=== PATIENT | female | born 1940 | race Caucasian/White ===

== ENCOUNTER 2018-10-03 12:42 | Emergency (ER) | payer MEDICARE ==
[2018-10-03 12:56] LABS: ABSOLUTE LYMPHOCYTES (AUTO) 2.1 10^3/uL (0.5-4.7); ABSOLUTE MONOCYTES (AUTO) 0.5 10^3/uL (0.1-1.4); ABSOLUTE NEUT (AUTO) 6.1 10^3/uL (1.7-8.2); BASOPHILS % (AUTO) 0.3 % (0-2); EOSINOPHILS % (AUTO) 0.4 % (0-6); HEMATOCRIT 35.5 % (36.0-47.0); HEMOGLOBIN 12.2 g/dL (12.0-15.5); LYMPHOCYTES % (AUTO) 23.9 % (13-45); MEAN CORPUSCULAR HGB CONC 34.3 g/dL (32.0-36.0); MEAN CORPUSCULAR VOLUME 91 fl (80-97); MONOCYTES % (AUTO) 5.8 % (3-13); PLATELET COUNT 269 10^3/uL (150-450); RED BLOOD COUNT 3.92 10^6/uL (3.72-5.28); RED CELL DISTRIBUTION WIDTH 14.7 % (11.5-14.0); SEGMENTED NEUTROPHILS % (AUTO) 69.6 % (42-78); TOTAL CELLS COUNTED % (AUTO) 100 %; WHITE BLOOD COUNT 8.8 10^3/uL (4.0-10.5)
[2018-10-03 13:01] LABS: PROTHROMBIN TIME 14.8 SEC (11.4-15.4)
[2018-10-03 13:02] LABS: PARTIAL THROMBOPLASTIN TIME 34.2 SEC (23.5-35.8)
--- NOTE | 2018-10-03 13:07 | RADIOLOGY REPORT (SQ) ---
EXAM DESCRIPTION: CT HEAD WITHOUT COMPLETED DATE/TIME: 10/03/2018 12:53 pm REASON FOR STUDY: stroke s/s COMPARISON: None. TECHNIQUE: Axial images acquired through the brain without intravenous contrast. Images reviewed wi th bone, brain and subdural windows. Additional sagittal and coronal reconstructions were generated. Images stored on PACS. All CT scanners at this facility use dose modulation, iterative reconstruction, and/or weight based d osing when appropriate to reduce radiation dose to as low as reasonably achievable (ALARA). [facility]: Dose Right [facility]: CareDose [facility]: Dose Right [facility]: Teradose 4D [facility]: [place] RADIATION DOSE: 1070 mgy cm LIMITATIONS: None. FINDINGS: VENTRICLES: Normal size and contour. CEREBRUM: There is a very large, heterogeneous intraparenchymal hemorrhage centered in the left coron a radiata measuring at least 7.6 x 5.6 cm in axial dimension, with extension to the lateral ventricle s and subarachnoid spaces. There is approximately 7 mm eoot-rs-kammf midline shift and evidence of e vasu uncal herniation (series 401, image 33). CEREBELLUM: No masses. No hemorrhage. No alteration of density. No evidence for acute infarction. EXTRAAXIAL SPACES: No fluid collections. No masses. ORBITS AND GLOBE: No intra- or extraconal masses. Normal contour of globe without masses. CALVARIUM: No fracture. PARANASAL SINUSES: No fluid or mucosal thickening. SOFT TISSUES: No mass or hematoma. OTHER: No other significant finding. IMPRESSION: There is a very large, heterogeneous intraparenchymal hemorrhage centered in the left co fausto radiata measuring at least 7.6 x 5.6 cm in axial dimension, with extension to the lateral ventri cles and subarachnoid spaces. There is approximately 7 mm sjwu-dd-dctmc midline shift and evidence o f early uncal herniation. EVIDENCE OF ACUTE STROKE: NO. Findings reported to Dr. Cabrera by telephone, 1300 hours, 10/03/2018. COMMENT: Quality ID # [id number]: Final reports with documentation of one or more dose reduction techniques (e.g., Automated exposure control, adjustment of the mA and/or kV according to patient size, use of iterative reconstruction technique) TECHNICAL DOCUMENTATION: JOB ID: [id number] [employer]- All Rights Reserved Reading location - IP/workstation name: [email or web address]
[2018-10-03 13:15] LABS: ALANINE AMINOTRANSFERASE 33 U/L (9-52); ALBUMIN 4.8 g/dL (3.5-5.0); ALKALINE PHOSPHATASE 73 U/L (38-126); ANION GAP 12 (5-19); ASPARTATE AMINO TRANSFERASE 37 U/L (14-36); BILIRUBIN,DIRECT 0.2 mg/dL (0.0-0.4); BILIRUBIN,TOTAL 0.7 mg/dL (0.2-1.3); BLOOD UREA NITROGEN 13 mg/dL (7-20); CALCIUM 9.2 mg/dL (8.4-10.2); CARBON DIOXIDE 26 mmol/L (22-30); CHLORIDE 102 mmol/L (98-107); CREATINE KINASE 114 U/L (30-135); GLUCOSE 100 mg/dL (75-110); POTASSIUM 4.1 mmol/L (3.6-5.0); SODIUM 139.6 mmol/L (137-145); TOTAL PROTEIN 7.7 g/dL (6.3-8.2)
--- NOTE | 2018-10-03 13:16 | RADIOLOGY REPORT (SQ) ---
EXAM DESCRIPTION: CHEST SINGLE VIEW COMPLETED DATE/TIME: 10/03/2018 12:56 pm REASON FOR STUDY: stroke s/s COMPARISON: 07/12/2015 EXAM PARAMETERS: NUMBER OF VIEWS: One view. TECHNIQUE: Single frontal radiographic view of the chest acquired. RADIATION DOSE: NA LIMITATIONS: None. FINDINGS: LUNGS AND PLEURA: No opacities, masses or pneumothorax. No pleural effusion. MEDIASTINUM AND HILAR STRUCTURES: No masses. Contour normal. HEART AND VASCULAR STRUCTURES: Heart normal in size. Normal vasculature. BONES: No acute findings. HARDWARE: Extensive spine hardware. OTHER: No other significant finding. IMPRESSION: NO ACUTE RADIOGRAPHIC FINDING IN THE CHEST. TECHNICAL DOCUMENTATION: JOB ID: [id number] [employer]- All Rights Reserved Reading location - IP/workstation name: [email or web address]
[2018-10-03 13:26] LABS: CREATINE KINASE MB 2.57 ng/mL (<4.55)
[2018-10-03 13:28] LABS: TROPONIN I < 0.012 ng/mL
[2018-10-03] MEDS ORDERED: PROPOFOL 1,000 MG/100 ML INFUS..BTL IV ONE (13:31)
[2018-10-03] MEDS ORDERED: ETOMIDATE INJ/PF 20 MG/10 ML SDV IV ONE (13:33)
[2018-10-03] MEDS ORDERED: NICARDIPINE HCL RTU, ISO-OS 20 MG/200 ML RTUINJ IV ONE (13:36)
[2018-10-03] MEDS ORDERED: MANNITOL 25% INJ 12.5 GM/50 ML VIAL IV ONE (14:06)
[2018-10-03] MEDS ORDERED: MANNITOL 500 ML IV ONE (14:10)
--- NOTE | 2018-10-03 14:26 | ER Document Report ---
ED Neuro Symptoms/Deficit - General Chief Complaint: S/S of Possible Stroke Stated Complaint: POSSIBLE STROKE Time Seen by Provider: 10/03/18 12:48 Primary Care Provider: PATRIC AGUERO MD [Primary Care Provider] - Follow up as needed Notes: Patient brought in by EMS for possible stroke. Patient had conversations with her who was at work up until about just before noon today. When he went home shortly after that, he found the patient on the floor having fallen into a sliding glass door and breaking the door. She was poorly responsive at that time and EMS was called. EMS found the patient to be poorly responsive as well. They noted that she had a left lateral gaze and apparent right-sided weakness. No other history is available at this time. TRAVEL OUTSIDE OF THE [place] IN LAST 30 DAYS: No - Related Data Allergies/Adverse Reactions: nalidixic acid [Nalidixic Acid] Allergy (Unknown, Verified 07/13/15 02:14) doxycycline [Doxycycline] Allergy (Verified 07/13/15 02:14) Past Medical History - Social History Smoking Status: Unknown if Ever Smoked Family History: Reviewed & Not Pertinent Patient has suicidal ideation: No Patient has homicidal ideation: No - Past Medical History Cardiac Medical History: Reports: Hx Atrial Fibrillation - On Eliquis., Hx Hypertension Pulmonary Medical History: Neurological Medical History: Reports: Hx Cerebrovascular Accident - NO RESIDUAL EFFECTS GI Medical History: Reports: Hx Ulcer - 10 YEARS AGO FROM TAKING LODINE Infectious Medical History: Past Surgical History: Reports: Hx Hysterectomy, Hx Orthopedic Surgery - 3 spinal surgeries - Immunizations Hx Diphtheria, Pertussis, Tetanus Vaccination: Yes Hx Pneumococcal Vaccination: 09/01/14 Review of Systems - Review of Systems -: Yes ROS unobtainable due to patient's medical condition - Patient is unable to speak. Per , no recent illness. Physical Exam - Vital signs Vitals: Pulse Resp BP Pulse Ox 68 13 155/107 H 96 10/03/18 12:45 10/03/18 12:45 10/03/18 12:45 10/03/18 12:45 Interpretation: Hypertensive Notes: PHYSICAL EXAMINATION: GENERAL: Unresponsive and is not speaking. HEAD: Atraumatic, normocephalic. EYES: Pupils equal round and reactive to light NECK: Stiff and immobile, most likely related to previous surgeries and hardware. LUNGS: Breath sounds clear and equal bilaterally. HEART: Irregularly irregular rate and rhythm without murmurs. ABDOMEN: Soft, nontender. No guarding or rebound. No masses. BACK: No tenderness throughout entire back. EXTREMITIES: Normal range of motion without pain. NEUROLOGICAL: Does not speak. Seems to have a rather flaccid paralysis of the right side. No further neurologic exam possible based on patient's clinical condition. SKIN: Warm, dry, no rashes. Course - Re-evaluation Re-evalutation: 10/03/18 14:27 Patient has been intubated. I spoke to Dr. Aranda at [place] and they will accept the patient and send a helicopter for transport. Given the severity of the patient's intracranial hemorrhage, I made the family aware of the critical nature of the patient's condition and the possibility that she might not survive this event. 10/03/18 14:34 Blood pressure has been erratically elevated, upon arrival 154/104 but subsequently going up as high as 180 290 systolic. Patient was started on Cardene drip, 5 mg/h. - Vital Signs Vital signs: Temp Pulse Resp BP Pulse Ox 68 13 155/107 H 96 10/03/18 12:45 10/03/18 12:45 10/03/18 12:45 10/03/18 12:45 - Laboratory Result Diagrams: 10/03/18 12:45 10/03/18 12:45 Laboratory results interpreted by me: 10/03/18 10/03/18 12:45 12:45 Hct 35.5 L RDW 14.7 H AST 37 H Procedures - Intubation Orotracheal Time of Intubation: 14:00 Airway evaluation: Neck immobility - Multiple previous surgeries to the neck and back. Medications: Etomidate, Succinylcholine, Diprivan Intubation method: Orotracheal Blade type: Other - Bonilla scope Equipment used: Other - Bonilla scope ETT size: 7.5 ETT secured at: Teeth Breath Sounds after Intubation: Equal End tidal CO2 confirmed: Yes Post Intubation Xray: Yes Critical Care Note - Critical Care Note Total time excluding time spent on procedures (mins): 60 Discharge - Discharge Clinical Impression: Intracranial hemorrhage Condition: Critical Disposition: [facility] Referrals: PATRIC AGUERO MD [Primary Care Provider] - Follow up as needed
[2018-10-03 14:28] VITALS: BP 140/118
--- NOTE | 2018-10-03 14:32 | RADIOLOGY REPORT (SQ) ---
EXAM DESCRIPTION: CHEST SINGLE VIEW COMPLETED DATE/TIME: 10/03/2018 2:20 pm REASON FOR STUDY: er 10 post intubation COMPARISON: 10/03/2018 EXAM PARAMETERS: NUMBER OF VIEWS: One view. TECHNIQUE: Single frontal radiographic view of the chest acquired. RADIATION DOSE: NA LIMITATIONS: None. FINDINGS: LUNGS AND PLEURA: No opacities, masses or pneumothorax. No pleural effusion. MEDIASTINUM AND HILAR STRUCTURES: No masses. Contour normal. HEART AND VASCULAR STRUCTURES: Heart normal in size. Normal vasculature. BONES: Extensive posterior cervicothoracolumbar fusion. HARDWARE: None in the chest. OTHER: Interval placement of endotracheal tube with tip projecting over the lower trachea. Esophagog astric tube with tip and side port below the diaphragm. IMPRESSION: Interval placement of endotracheal tube with tip projecting over the lower trachea. Eso phagogastric tube with tip and side port below the diaphragm. No acute abnormality of the lungs. TECHNICAL DOCUMENTATION: JOB ID: [id number] [employer]- All Rights Reserved Reading location - IP/workstation name: [email or web address]
[2018-10-03] MEDS ORDERED: MANNITOL IV ONE (15:00)
[2018-10-03] MEDS ORDERED: SUCCINYLCHOLINE CHLORIDE INJ 200 MG/10 ML VIAL ONE (16:17)
--- NOTE | 2018-10-03 17:13 | EKG REPORT ---
SEVERITY:- NORMAL ECG - SINUS RHYTHM : Confirmed by: Ulises Velazquez MD 03-Oct-2018 17:13:23
== END 2018-10-03 15:15 | disposition short-term general hospital (02) ==
LOC: ER 12:42
DX: I61.8 Other nontraumatic intracerebral hemorrhage (principal); G81.01 Flaccid hemiplegia affecting right dominant side; I10 Essential (primary) hypertension; Z88.1 Allergy status to other antibiotic agents
CPT/HCPCS: 93005; 99291; 51702; 96365; 96368; 36415; 82553; 82962; 82550; 85025; 85610; 85730; 80053; 84484; 71045; 70450; 94660; 93010; 31500; J0330; J2150; J3490